=== PATIENT | female | born 1935 | race Caucasian/White ===

== ENCOUNTER → 2017-06-28 | Outpatient (CLI) | payer MEDICARE, BC ==
[~2017-06-28] MED LIST: AMLODIPINE BESY10 M1 PO; ATORVASTATIN CA80 MG PO; CHEWABLE ASPIRI81 MG PO; CHLORTHALIDONE25 MG PO; HYDROCODONE-APA1 TA1 PO; KEFLEX 500MG.500 MG PO; NOVOLOG MI100 UNITS/ SC; PLAVIX75 MG PO; PREDNISONE 20MG20 MG PO; RAMIPRIL 10MG C10 MG PO; RAMIPRIL10 MG PO; TOPROL XL 50MG50 MG PO
--- NOTE | 2017-06-28 14:53 | RADIOLOGY REPORT PS360 ---
History and Indications: History of CT, bypass surgery, hypertension, diabetes, hyperlipidemia, family history and chest pain Procedure: Patient received a 0.4 mg of Lexiscan, resting heart rate was 64 bpm resting blood pressure 170/60, with scan maximum heart rate achieved was 113 bpm, less than 85% of the maximum predicted heart rate and a blood pressure was 202 /103. With Lexiscan patient complained of headache and back pain. Electrocardiogram: Resting electrocardiogram showed sinus rhythm rightward axis, lateral ST-T changes consider ischemia versus strain pattern . With Lexiscan patient developed rate-dependent left bundle branch block. The EKG portion of the Lexiscan Myoview is nondiagnostic Cardiac stress and resting SPECT images: Cardiac stress and rest SPECT images were obtained using technetium 99 Myoview 10.1 mCi at rest and 32.5 mCi at stress, gated SPECT further analysis of segmental wall motion and calculation of the ejection fraction also done. Cardiac stress and rest images show a fixed defect involving the anteroapical apex and anteroseptal wall consistent with area of myocardial scarring without any significant thinning point ischemia. Computer derived ejection fraction is 60 percent, with anteroapical and anteroseptal wall hypokinesis. Right ventricle is mildly enlarged with normal contractility. Conclusion: 1. The EKG portion of the Lexiscan Myoview is nondiagnostic. 2. Scintigraphic evidence of myocardial scarring involving the anteroapical and anteroseptal wall without significant maria ines-infarct ischemia, computer derived ejection fraction is 60% with segmental wall motion abnormality described above, right ventricle is mildly enlarged with normal contractility. 3. Abnormal Lexiscan Myoview study.
== END ==
LOC: RAD 07:19
DX: R07.9 Chest pain, unspecified (principal); I25.10 Atherosclerotic heart disease of native coronary artery without angina pectoris
CPT/HCPCS: A9502; J2785

== ENCOUNTER 2017-09-03 10:38 | Inpatient (IN) | payer MEDICARE, BC ==
[~2017-09-03] VITALS: Ht 147.3 cm; Wt 52.7 kg
[2017-09-03 10:42] VITALS: BP 138/56
--- OUTSIDE RECORDS SUMMARY | 2017-09-03 10:55 | External Medical Summary Rpt | CCD ---
Author Author , JAMAL BERRY Address Unknown Phone [email or web address] Name Relationship Address Phone SANDEEP, Next Of Kin Sally GIBBS +1 [address] [phone] [place] [address] Purpose Continuity of Care Document - 06-19-2013 through 2016 Problems Code Diagnosis DOS Provider Status 621.0 786.50 789.05 M10.9 GOUT, UNSPECIFIED R07.9 CHEST PAIN, UNSPECIFIED Allergies, Adverse Reactions, Alerts Type Allergy to substance Adverse Reaction to Substance Substance Reaction Severity INGREDIENT: NO KNOWN Unknown Unknown - NO KNOWN DRUG ALLERGY Medications Na ND Rx Da Fi Fi Am Da Di Ph RX Ph St me C No te ll ll ou ys ag ar # ys at rm s nt no ma ic us Or Da si cy ia de te s n re d Sa 63 10 0 No li 80 -1 ne 70 0- Lo 10 20 ng Fl 07 13 er us 5 h Ac 10 ti ML ve Sy ri ng e SO 00 10 0 No EL 00 -1 -M 90 0- Lo ED 04 20 ng RO 72 13 er L 2 12 Ac 5 ti MG ve AL KE 00 10 0 No TO 40 -1 RO 93 0- Lo LA 79 20 ng C 50 13 er 30 1 Ac MG ti /M ve L AL Mo 00 10 0 No rp 40 -1 hi 91 0- Lo ne 25 20 ng 83 13 er 4M 0 G/ Ac Ml ti ve Sy ri ng e CE 00 10 0 No FT 40 -1 RI 97 0- Lo AX 33 20 ng ON 30 13 er E 4 1 Ac GM ti ve AL SO 00 10 0 No DI 40 -1 UM 97 0- Lo 10 20 ng CH 16 13 er LO 6 RI Ac DE ti ve 0. 9% SO LN Vital Signs 06-19-2013 23:09 Name Value Interpretat Reference Comment ion Range Body 97.9 [degF] Temperature BP 68 mm[Hg] Diastolic BP Systolic 121 mm[Hg] Heart 73 /min Rate/Pulse O2% 97 % Respiratory 17 /min Rate 06-19-2013 21:54 Name Value Interpretat Reference Comment ion Range BP 73 mm[Hg] Diastolic BP Systolic 135 mm[Hg] Heart 72 /min Rate/Pulse O2% 96 % Respiratory 19 /min Rate Results Labs Lab Lab Date Result Refere Interp Status Commen Order Detail nces retati t Range on COMPREHENSIVE METABOLIC PANEL (06-19-2013 21:17) Glucose 192 74-106 complet 013 mg/dL ed Bld-mCn 21:17 c BUN 31 7-18 complet Bld-mCn 013 mg/dL ed c 21:17 Creat 1.9 0.6-1.0 complet SerPl-m 013 mg/dL ed Cnc 21:17 ESTIMAT 20 50-200 complet ED 013 ML/MIN ed CREATIN 21:17 INE CLEARAN CE GFR 26 59- complet (ESTIMA 013 ML/MIN ed ROWDY) 21:17 Sodium 138 136-145 complet SerPl-s 013 mmoL/L ed Cnc 21:17 Potassi 3.8 3.5-5.1 complet um 013 mmoL/L ed SerPl-s 21:17 Cnc Chlorid 101 98-107 complet e 013 mmoL/L ed SerPl-s 21:17 Cnc CO2 24 21.0-32 complet SerPl-s 013 mmoL/L .0 ed Cnc 21:17 Calcium 06-19- 8.8 8.5-10. complet 013 mg/dL 1 ed SerPl-m 21:17 Cnc Prot 06-19- 8.0 6.4-8.2 complet SerPl-m 013 gm/dL ed Cnc 21:17 Albumin 06-19- 4.0 3.4-5.0 complet 013 gm/dL ed SerPl-m 21:17 Cnc Globuli 06-19- 4.0 1.3-3.2 complet n 013 gm/dL ed Ser-mCn 21:17 c Albumin 1.0 UNK 1.1-1.8 complet /Glob 013 ed SerPl-m 21:17 Rto Bilirub 0.8 0.2-1.0 complet 013 mg/dL ed SerPl-m 21:17 Cnc AST 10-10-2 12 U/L 15-37 complet SerPl-c 013 ed Cnc 21:17 ALT 10-10-2 29 U/L 30-65 complet SerPl-c 013 ed Cnc 21:17 ALP 10-10-2 101 U/L 50-136 complet SerPl-c 013 ed Cnc 21:17 URIC ACID (06-19-2013 21:17) URIC 10-10-2 8.0 2.6-7.2 complet ACID 013 mg/dL ed 21:17 CBC with AUTO DIFF (06-19-2013 21:17) WBC # 10-10-2 14.6 4.8-10. complet Bld 013 K/MM3 8 ed Auto 21:17 RBC # 10-10-2 4.13 4.2-5.4 complet Bld 013 M/mm3 ed Auto 21:17 Hgb 10-10-2 13.4 12.2-16 complet Bld-mCn 013 g/dL .2 ed c 21:17 Hct Fr 10-10-2 39.6 % 37.0-47 complet Bld 013 .0 ed 21:17 MCV RBC 10-10-2 95.8 fl 82.2-97 complet 013 .8 ed 21:17 MCH RBC 10-10-2 32.5 pg 27-31.2 complet Qn 013 ed Auto 21:17 MEAN 10-10-2 33.9 31.8-35 complet CORPUSC 013 g/dl .4 ed ULAR 21:17 HGB CONC RDW RBC 10-10-2 13.8 % 11.5-17 complet Auto 013 .5 ed 21:17 Platele 10-10-2 265 142-424 complet t Bld 013 K/mm3 ed Ql 21:17 Manual MEAN 10-10-2 8.4 fl 7.4-10. complet PLATELE 013 4 ed T 21:17 VOLUME Granulo 10-10-2 73.2 % 37.0-80 complet cytes 013 .0 ed Fr Bld 21:17 Auto LYMPH % 10-10-2 18.4 % 10-50.0 complet 013 ed 21:17 Monocyt 10-10-2 7.3 % 1.7-9.3 complet es Fr 013 ed Bld 21:17 Auto Eosinop 10-10-2 0.7 % 0.1-12. complet hil Fr 013 0 ed Bld 21:17 Auto Basophi 10-10-2 0.4 % 0.1-2.0 complet ls Fr 013 ed Bld 21:17 Auto Granulo 10-10-2 10.7 1.8-7.8 complet cytes # 013 K/mm3 ed Bld 21:17 Auto Lymphoc 10-10-2 2.7 0.7-4.5 complet ytes Fr 013 K/mm3 ed Bld 21:17 Auto Monocyt 10-10-2 1.1 0.1-1.0 complet es # 013 K/mm3 ed Bld 21:17 Auto Eosinop 10-10-2 0.1 0.0-0.4 complet hil # 013 K/mm3 ed Bld 21:17 Auto Basophi 10-10-2 0.1 0-0.2 complet ls # 013 K/MM3 ed Bld 21:17 Auto ESR Bld Qn 15M (06-19-2013 21:17) ESR Bld 06-19-2 41 0-30 complet Qn 15M 013 mm/hr ed 21:17 Encounters Encounter Start End Date Code Location Performer Type Date Emergency ALVIN Baron MD (ER) 3 21:38 3 23:10 [facility]
--- OUTSIDE RECORDS SUMMARY | 2017-09-03 10:55 | External Medical Summary Rpt | CCD ---
Author Author , JAMAL BERRY Address Unknown Phone [email or web address] Support Name Relationship Address Phone SANDEEP, Next Of Kin Sally GIBBS +1 [address]OS [phone] [place] [address] Purpose Continuity of Care Document - 06-19-2013 [...] Baron MD (ER) 3 21:38 3 23:10 [facility]
--- OUTSIDE RECORDS SUMMARY | 2017-09-03 10:56 | External Medical Summary Rpt | CCD ---
Author Author [employer] Organization [employer] Address Unknown Phone Unavailable Purpose Continuity of Care Document - through 2016
--- OUTSIDE RECORDS SUMMARY | 2017-09-03 10:56 | External Medical Summary Rpt | CCD ---
Demographics Preferred Language Maltese Marital Status Unknown Hinduism Affiliation Unknown Race Unknown Ethnic Group Unknown Author Author , JAMAL BERRY Address Unknown Phone Immunization No patient found.
--- OUTSIDE RECORDS SUMMARY | 2017-09-03 10:56 | External Medical Summary Rpt | CCD ---
Demographics Preferred Language Luxembourgish Marital Status Unknown Episcopalian Affiliation Unknown Race Unknown Ethnic Group Unknown Author Author , JAMAL BERRY Address Unknown Phone Immunization No patient found.
--- OUTSIDE RECORDS SUMMARY | 2017-09-03 10:56 | External Medical Summary Rpt ---
Author Author JAMAL Almonte, JAMAL Almonte Organization [employer] Address Unknown Phone Unavailable
--- NOTE | 2017-09-03 10:57 | Emergency Room Report ---
History of Present Illness Time Seen by 1050 Presenting Problem in Triage Pt arrived:Wheelchair Presenting Problem:BODY ACHES, FEVER, COUGH X2 DAYS Onset of symptoms date/time:/ or onset unknown for:MEDICAL HX UNKNOWN Treatment Prior to Arrival: MAINTENANCE INSPECTOR Provided by: Sepsis Risk Assessment: Temp: 101.1 B/P: 138/56 MAP: 83 Pulse: 110 Resp: 24 Recent fever? N Clinical Suspician of Infection? N Mental Status: 1 - Regular (Normal Baseline) Sepsis Risk:Severe Sepsis Risk Have you (or family members/close friends) recently traveled outside the [place]? N If Yes, where/when: Have you had exposure to infectious disease within the past month? TB? Other? Specify: 82 years old white female diabetic with history of bronchitis 2 weeks ago. She was treated with antibiotics. 3 days ago she developed progressive cough productive green , shortness of breath and weakness. She presented to the ED with a fever of 101. she has no dysuria or hematuria, she has no flank pain, no NVD. Source patient, RN notes reviewed Exam Limitations clinical condition (hard hearing ) ALLERGIES Coded Allergies: No Known Allergies (09/03/17) Home Medications Active Scripts Prednisone (Prednisone 20MG) 40 MG PO DAILY #10 TAB Prov: 07/02/14 HYDROCODONE 5MG/APAP 325MG (Hydrocodon-Acetaminophen 5-325) 0.5 TAB PO Q6HP PRN sever pain #6 TAB Prov: 07/02/14 Reported Medications Clopidogrel Bisulfate (Plavix) 75 MG PO DAILY Ramipril (Ramipril 10MG) 10 MG PO DAILY Aspirin (Aspirin, Chewable) 81 MG PO DAILY Ins Asp-Prt 70/Asp 30(Nvlogmx) (Novolog Mix 70-30 Flexpen Syrn) 8 UNITS SC BID #30 90 Days Chlorthalidone 25 MG PO DAILY #90 90 Days Atorvastatin Calcium 80 MG PO QHS #90 90 Days Amlodipine Besylate 10 MG PO BID #180 90 Days History Medical History General Angina: No [place]: Yes Hypertension? Yes Hyperlipidemia? Yes CHF? No COPD? No Asthma? No Hernia? No CVA? No Seizures? No Diabetes? Yes Insulin Dependent: Yes Insulin Pump: No Home FSBS? Yes UTI? Yes Stones? No GB Disease: Yes Hepatitis? No Cataracts? Yes Glaucoma? No MRSA? Yes TB? No Cancer? No Immunization Hx DT/Tetanus > 10 YRS Flu NEVER Pneumonia NEVER Surgical Hx Previous Surgery?Y CABGX3 GALLBLADDER CATARACT REMOVAL-R EYE TONSILECTOMY Family History Family Hx Diabetes Yes CAD Yes Hypertension Yes Hyperlipidemia Yes Cancer Yes TB Yes Social History Smoking Hx Smoker: Never Smoker Tobacco: No Type Cigarettes Alcohol Alcohol: No Review of Systems All Other Systems Reviewed and Negative Constitutional see HPI, fever, weakness Eyes no symptoms reported ENT no symptoms reported. Respiratory see HPI, cough, shortness of breath Cardiovascular no symptoms reported Gastrointestinal no symptoms reported Genitourinary no symptoms reported. Musculoskeletal no symptoms reported Skin no symptoms reported Psychiatric/Neurological no symptoms reported Physical Exam Vital Signs Vital Signs Date Time Temp Pulse Resp B/P Pulse O2 O2 Flow FiO2 Ox Delivery Rate 09/03 1159 50 20 124/52 91 3 09/03 1158 100.0 43 20 124/48 82 09/03 1042 101.1 110 24 138/56 92 - WBC >12,000 or <4,000 or 10% bands? 2 or more SIRS Criteria Met? B/P:138/56 MAP:83 Creatinine >2.0? UA output<0.5ml/kg/hr for 2 hrs? Platelet count >100,000? Lactate >2.0mmol/1? INR >1.2 or PTT > than 60 sec? Evidence of Organ Dysfunction? Provider documented clinical suspician of infection? N Sepsis Criteria Count: 2 Sepsis Risk: Severe Sepsis Risk General Appearance normal appearance, WD/WN Eye Exam - bilateral eye normal exam, bilateral eye PERRL, bilateral eye EOMI Ear, Nose, Throat hearing grossly normal, normal ENT inspection Neck normal inspection, non-tender, supple, full range of motion Respiratory Status Yes: trachea midline, chest symmetrical, non tender chest. No: respiratory distress. Lung Sounds bilateral: normal breath sounds, lungs clear. Cardiovascular normal exam, regular rate/rhythm, no peripheral edema, no gallop, no JVD, no murmur, no rub, normal peripheral pulses Peripheral Pulses Pulses normal Yes Gastrointestinal normal bowel sounds, normal exam, non tender, soft, no organomegaly Extremities non-tender, normal range of motion, normal inspection, normal capillary refill, no pedal edema Strength 4 Upper Ext (L), 4 Upper Ext (R), 4 Lower Ext (L), 4 Lower Ext (R) Neurologic alert, service desk lead II-XII nml as tested, normal exam, no motor/sensory deficits, oriented x 3 Reflexes Reflexes normal Yes Mental status normal mood/affect Skin intact, normal color, warm/dry Medical Decision Making LABS/Meds/Orders Pt receiving controlled substance in ED? No Results/Orders Laboratory Tests 09/03/17 1055: Lactic Acid 1.5 09/03/17 1055: B-Natriuretic Peptide Pending 09/03/17 1055: Sodium 138, Potassium 4.4, Chloride 105, Carbon Dioxide 22, BUN 43 H, Creatinine 2.3 H, Estimated Creat Clear 16 L, Estimated GFR (MDRD) 20 L, Glucose 140 H, Calcium 9.1, Total Bilirubin 1.7 H, AST 25, ALT 39, Alkaline Phosphatase 75, Total Protein 7.3, Albumin 4.0, Globulin 3.3 H, Albumin/ Globulin Ratio 1.2, WBC 12.7 H, RBC 3.29 L, Hgb 10.5 L, Hct 32.8 L, MCV 99.6 H, RDW 15.4, Plt Count 163, MPV 9.6, Gran % 88.2 H, Gran # 11.2 H, Total Counted 100, Lymphocytes % 6.6 L, Monocytes % 4.4, Eosinophils % 0.5, Basophils % 0.3, Neutrophils 92 H, Lymphocytes (Manual) 4 L, Lymphocytes # 0.8, Monocytes (Manual) 4, Monocytes # 0.6, Eosinophils # 0.1, Basophils # 0.0, Platelet Estimate NORMAL, Hypochromasia 1+, Anisocytosis 1+, Macrocytosis 1+, PUBS MCHC 32.0, MCH 31.9 H 09/03/17 1045: Influenza Type A Ag NOT DETECTED, Influenza Type B Ag NOT DETECTED Current Medication Orders Sig/New Start time Last Medication Dose Route Stop Time Status Admin Furosemide 20 MG ONCE ONE 09/03 1215 AC 09/03 IV 09/03 1216 1206 Ceftriaxone Sodium 0 .STK-MED ONE 09/03 1204 DC .ROUTE Furosemide 0 .STK-MED ONE 09/03 1203 DC .ROUTE Ceftriaxone Sodium 1 GM ONCE ONE 09/03 1200 AC 09/03 Sodium Chloride 50 ML IV 09/03 1229 1206 Sodium Chloride 1,000 ML .STK-MED ONE 09/03 1104 DC IV Acetaminophen 650 MG ONCE ONE 09/03 1100 DC 09/03 PO 09/03 1101 1053 Sodium Chloride 10 ML PRN PRN 09/03 1100 AC IV 09/04 1051 Sodium Chloride 1,000 ML .Q1H1M 09/03 1100 DC 09/03 IV 09/03 1200 1106 Sodium Chloride 10 ML PRN PRN 09/03 1100 AC IV 09/04 1058 Acetaminophen 0 .STK-MED ONE 09/03 1052 DC PO Orders Procedure Date/time Status BRAIN NATRIURETIC PEPTIDE 09/03 1146 Active STREP SCREEN THROAT 09/03 1056 Complete CULTURE, THROAT 09/03 1055 Active DIFFERENTIAL-WBC 09/03 1055 Complete IV SALINE LOCK 09/03 1051 Active CULTURE, BLOOD 09/03 1051 Active LACTIC ACID 09/03 1051 Complete INFLUENZA A&B ANTIGENS 09/03 1051 Complete CBC WITH AUTO DIFF 09/03 1051 Complete CHEM 12 PROFILE 09/03 1051 Complete Departure Departure Time of Disposition 1207 Disposition Still a Patient Clinical Impression Primary Impression: Sinus bradycardia Secondary Impressions: Congestive heart failure, Diabetes, Pneumonia, Renal insufficiency Condition STABLE Referrals Cristina NGUYEN,Rikki Howe Additional Instructions The patient hhad an episode of bradycardia and maintained her BP at 120/60. she was positive CHF by CXR. I discussed with Dr Evans and could no t exclude oneumonia on CXR . 1- will admit 2- start abx 3- consult cardiology , I called Dr Ferguson and notified him of the consult. 4- start diuresis. 5- hold norvasc. Discharge Counseling Counseled pt/family regarding diagnosis, test results, medications/RX, home care, follow up needs ED Critical Care Critical Care No at 1216
[2017-09-03 11:25] LABS: LYMPH # 0.8 K/mm3 (0.7-4.5); LYMPH % 6.6 % (10-50.0)
--- NOTE | 2017-09-03 11:31 | RADIOLOGY REPORT PS360 ---
CHEST(2 VIEWS-NOT PORTABLE) HISTORY: SOA, WEAKNESS ORDERING PHYSICIAN: Sunni Loo MD PATIENT AGE: 82 years COMPARISON: 02/24/2009 FINDINGS: There is cardiomegaly with pulmonary venous congestion and small bilateral pleural effusions consistent with congestive heart failure. No lobar consolidation or collapse. There has been a prior median sternotomy. IMPRESSION: CHF and small bilateral effusions
[2017-09-03 11:40] LABS: HEMOGLOBIN 10.5 g/dL (12.2-16.2)
[2017-09-03 12:03] LABS: NEUTROPHILS 92 % (42-76)
--- OUTSIDE RECORDS SUMMARY | 2017-09-03 12:29 | External Medical Summary Rpt ---
Author Author [employer], [employer] Organization [employer] Address Unknown Phone Unavailable Results Natriutietic peptide B [Mass/volume] in Serum or Plasma Observa Value Referen Units Interpr Notes Date tion ce etation Range Natriutie 0 - 100 pg/mL High No Sep 03 tic 2016 peptide B on in 10:55 AM source [Mass/vol data ume] in Serum or Plasma CBC W Auto Differential panel in Blood Observa Value Referen Units Interpr Notes Date ti ce etation Range Basophils 0 - 0.2 K/MM3 Normal No Sep 032016 [#/volume on in 10:55 AM ] in source Blood by data Automated count Basophils 0.1 - 2.0 % Normal No Sep 03 / inform2016 leukocyte on in 10:55 AM s in source Blood by data Automated count Eosinophi 0.0 - 0.4 K/mm3 Normal No Sep 03 ls 2016 [#/volume on in 10:55 AM ] in source Blood by data Automated count Eosinophi 0.1 - % Normal Sep 03 ls/100 12.0 2016 leukocyte on in 10:55 AM s in source Blood by data Automated count Granulocy 1.8 - 7.8 K/mm3 High No Sep 03 tex 2016 [#/volume on in 10:55 AM ] in source Blood by data Automated count Granulocy 37.0 - % High No Sep 03 tex/100 80.0 2016 leukocyte on in 10:55 AM s in source Blood by data Automated count Hematocri 37.0 - % Low Sep 03 t [Volume 47.0 2016 on in 10:55 AM Fraction] source of Blood data Hemoglobi 12.2 - g/dL Low No Sep 03 n 16.2 2016 [Mass/vol on in 10:55 AM ume] in source Blood data Lymphocyt 0.7 - 4.5 K/mm3 Normal No Sep 03 es 2016 [#/volume on in 10:55 AM ] in source Unspecifi data ed specimen by Automated count Lymphocyt 10 - 50.0 % Low No Sep 03 es 2016 [#/volume on in 10:55 AM ] in source Unspecifi data ed specimen by Automated count Erythrocy 27 - 31.2 pg High No Sep 03 te mean 2016 corpuscul on in 10:55 AM ar source hemoglobi data n [Entitic mass] Erythrocy 31.8 - g/dl Normal No Sep 03 te mean 35.4 2016 corpuscul on in 10:55 AM ar source hemoglobi data n concentra tion [Mass/vol ume] by Automated count Erythrocy 82.2 - fl High No Sep 03 te mean 97.8 2016 corpuscul on in 10:55 AM ar volume source [Entitic data volume] by Automated count Monocytes 0.1 - 1.0 K/mm3 Normal No Sep 032016 [#/volume on in 10:55 AM ] in source Blood by data Automated count Monocytes 1.7 - 9.3 % Normal No Sep 03 /100 2016 leukocyte on in 10:55 AM s in source Blood by data Automated count Platelet 7.4 - fl Normal No Sep 03 mean 10.4 2016 volume on in 10:55 AM [Entitic source volume] data in Blood by Automated count Platelets 142 - 424 K/mm3 No No Sep 03 informati inform2016 [#/volume on in on in 10:55 AM ] in source source Blood data data Erythrocy 4.2 - 5.4 M/mm3 Low No Sep 03 tex 2016 [#/volume on in 10:55 AM ] in source Amniotic data fluid Erythrocy 11.5 - % Normal No Sep 03 te 17.5 2016 distribut on in 10:55 AM ion width source [Entitic data volume] by Automated count Leukocyte 4.8 - K/MM3 High No Sep 03 s 10.8 2016 [#/volume on in 10:55 AM ] in source Blood data Differential panel, method unspecified - Observa Value Referen Units Interpr Notes Date tion ce etation Range Anisocy 1+ No No No No Sep 03 tosis informa informa informa informa 2016 [Presen tion in tion in tion in tion in 10:55 ce] in source source source source AM Blood data data data data Hypochr 1+ No No No No Sep 03 omia informa informa informa informa 2016 [Presen tion in tion in tion in tion in 10:55 ce] in source source source source AM Blood data data data data LYMPH 4 10 - 50 % Low No Sep 03 inform2016 tion in 10:55 source AM data Macrocy 1+ No No No No Sep 03 tex informa informa informa informa 2016 [Presen tion in tion in tion in tion in 10:55 ce] in source source source source AM Blood data data data data Monocytes 2 - 9 % Normal No Sep 03 / inform2016 leukocyte on in 10:55 AM s in source Blood by data Automated count Platele NORMAL No No No No Sep 03 ts informa informa informa informa 2016 [Presen tion in tion in tion in tion in 10:55 ce] in source source source source AM Blood data data data data by Light microsc opy Neutrophi 42 - 76 % High No Sep 03 ls 2016 [#/volume on in 10:55 AM ] in source Blood by data Automated count Cells No #CELLS No No Sep 03 Counted informati informati informati 2016 Total [#] on in on in on in 10:55 AM in Blood source source source data data data Streptococcus pyogenes Ag [Presence] in Unspecified specimen Observa Value Referen Units Interpr Notes Date tion ce etation Range Strepto NEGATIV No No No No Sep 03 coccus E informa informa informa informa 2016 pyogene tion in tion in tion in tion in 10:55 s Ag source source source source AM [Presen data data data data ce] in Unspeci fied specime n Lactate [Moles/volume] in Blood Observa Value Referen Units Interpr Notes Date tion ce etation Range Lactate 0.4 - 2.0 mmol/L Normal No Sep 03 [Moles/vo inform2016 lume] in on in 10:55 AM Blood source data Comprehensive metabolic 2000 panel in Serum or Plasma Observa Value Referen Units Interpr Notes Date tion ce etation Range Albumin/G 1.1 - 1.8 No Normal No Sep 03 lobulin informati informati 2016 [Mass on in on in 10:55 AM ratio] in source source Serum or data data Plasma Albumin 3.4 - 5.0 gm/dL Normal No Sep 03 [Mass/vol informati 2017 ume] in on in 10:55 AM Serum or source Plasma data Alkaline 46 - 116 U/L Normal No Sep 03 phosphata inform2016 se on in 10:55 AM [Enzymati source c data activity/ volume] in Serum or Plasma Bilirubin 0.2 - 1.0 mg/dL High No Sep 03 .total informati 2016 [Mass/vol on in 10:55 AM ume] in source Serum or data Plasma Urea 7 - 18 mg/dL High No Sep 03 nitrogen informati 2016 [Mass/vol on in 10:55 AM ume] in source Serum or data Plasma Calcium 8.5 - mg/dL Normal No Sep 03 [Mass/vol 10.1 informati 2016 ume] in on in 10:55 AM Serum or source Plasma data Chloride 98 - 107 mmoL/L Normal No Sep 03 [Moles/vo informati 2016 lume] in on in 10:55 AM Serum or source Plasma data Carbon 21.0 - mmoL/L Normal Sep 03 dioxide, 32.0 informati 2016 total on in 10:55 AM [Moles/vo source lume] in data Serum or Plasma Creatinin 0.55 - mg/dL High No Sep 03 e 1.02 informati 2016 [Mass/vol on in 10:55 AM ume] in source Serum or data Plasma Creatinin 50 - 200 ML/MIN Low No Sep 03 e renal inform 2017 clearance on in 10:55 AM source predicted data by Cockcroft -Gault formula Estimated 59- ML/MIN Low REFERENCE Sep 03 RANGE: 2017 glomerula >60 10:55 AM r ML/MIN/1. filtratio 73 SQUARE n rate METERSIf (GF this patient is -A merican, then multiply theresult by 1.210. Globulin 1.3 - 3.2 gm/dL High No Sep 03 [Mass/vol informati 2017 ume] in on in 10:55 AM Serum source data Glucose 74 - 106 mg/dL High No Sep 03 [Mass/vol informati 2017 ume] in on in 10:55 AM Serum or source Plasma data Potassium 3.5 - 5.1 mmoL/L Normal No Sep 03 informati 2016 [Moles/vo on in 10:55 AM lume] in source Serum or data Plasma Sodium 136 - 145 mmoL/L Normal No Sep 03 [Moles/vo informati 2017 lume] in on in 10:55 AM Serum or source Plasma data Aspartate 15 - 37 U/L Normal No Sep 03 inform2016 aminotran on in 10:55 AM sferase source [Enzymati data c activity/ volume] in Serum or Plasma Alanine 12 - 78 U/L Normal No Sep 03 aminotran inform2016 sferase on in 10:55 AM [Enzymati source c data activity/ volume] in Serum or Plasma Protein 6.4 - 8.2 gm/dL Normal No Sep 03 [Mass/vol informati 2016 ume] in on in 10:55 AM Serum or source Plasma data Influenza virus A+B Ag [Presence] in Unspecified specimen Observa Value Referen Units Interpr Notes Date tion ce etation Range Influen NOT NOT No No Sep 03 za DETECTE DETECTD informa informrichard tracey,Cammie 2017 virus A D tion in tion in herine 10:45 Ag source source AM [Presen data data ce] in Unspeci fied specime n Influen NOT NOT No No Sep 03 za DETECTE DETECTD informa informrichard tracey,Cammie 2017 virus B D tion in tion in herine 10:45 Ag source source AM [Presen data data ce] in Unspeci fied specime n
--- OUTSIDE RECORDS SUMMARY | 2017-09-03 12:29 | External Medical Summary Rpt | CCD ---
Demographics Preferred Language Kiswahili Marital Status Unknown Islam Affiliation Unknown Race Unknown Ethnic Group Unknown Author Author , JAMAL BERRY Address Unknown Phone Immunization No patient found.
--- OUTSIDE RECORDS SUMMARY | 2017-09-03 12:29 | External Medical Summary Rpt | CCD ---
Demographics Preferred Language Kiswahili Marital Status Unknown Hindu Affiliation Unknown Race Unknown Ethnic Group Unknown Author Author , JAMAL BERRY Address Unknown Phone Immunization No patient found.
--- OUTSIDE RECORDS SUMMARY | 2017-09-03 12:29 | External Medical Summary Rpt | CCD ---
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, UNSPECIFIED R00.1 BRADYCARDIA 09-03-2017 , UNSPECIFIED 621.0 786.50 789.05 M10.9 GOUT, UNSPECIFIED R07.9 [...] Order Detail nces retati t Range on Comprehensive metabolic panel (09-03-2017 10:55) Serum 12-25-2 = 1.2 1.1-1.8 complet or 017 ed plasma 10:55 albumin /globul in mass ra Serum 25-2 = 75 46-116 complet or 017 U/L ed plasma 10:55 alkalin e phospha tase dottie Serum 09-03-2 = 4.0 3.4-5.0 complet or 017 gm/dL ed plasma 10:55 albumin measure ment (mas Serum 09-03-2 = 1.7 0.2-1.0 complet or 017 mg/dL ed plasma 10:55 total bilirub in measure m Serum 09-03-2 = 43 7-18 complet or 017 mg/dL ed plasma 10:55 urea nitroge n measure men Serum 25-2 = 9.1 8.5-10. complet or 017 mg/dL 1 ed plasma 10:55 calcium measure ment (mas Serum 09-03-2 = 105 98-107 complet or 017 mmoL/L ed plasma 10:55 chlorid e measure ment (mo Carbon 25-2 = 22 21.0-32 complet dioxide 017 mmoL/L .0 ed 10:55 measure ment Serum 25-2 = 2.3 0.55-1. complet or 017 mg/dL 02 ed plasma 10:55 creatin ine measure ment ( Estimat 09-03-2 = 16 50-200 complet ion of 017 ML/MIN ed creatin 10:55 ine renal clearan ce Estimat 25-2 = 20 59- complet ed 017 ML/MIN ed glomeru 10:55 lar filtrat ion rate (GF Comment: REFERENCE RANGE: >60 ML/MIN/1.73 SQUARE METERS Comment: If this patient is -[place], then multiply the Comment: result by 1.210. Serum 09-03-2 = 3.3 1.3-3.2 complet globuli 017 gm/dL ed n 10:55 measure ment (mass/v olume) Serum 09-03-2 = 140 74-106 complet or 017 mg/dL ed plasma 10:55 glucose measure ment (mas Serum = 4.4 3.5-5.1 complet potassi 017 mmoL/L ed um 10:55 measure ment Serum 2 = 138 136-145 complet sodium 017 mmoL/L ed measure 10:55 ment Serum 2 = 25 15-37 complet or 017 U/L ed plasma 10:55 asparta te aminotr ansfera ALT = 39 12-78 complet (SGPT) 017 U/L ed ser/barry 10:55 s Protein = 7.3 6.4-8.2 complet total 017 gm/dL ed ser/barry 10:55 s Screening group A Streptococcus antigen (09-03-2017 10:55) Screeni NEGATIV complet ng 017 E ed group A 10:55 NEGATIV E L Strepto coccus antigen Blood lactic acid measurement (moles/vol (09-03-2017 10:55) Blood 2 = 1.5 0.4-2.0 complet lactic 017 mmol/L ed acid 10:55 measure ment (moles/ vol CBC w auto diff (09-03-2017 10:55) Automat = 0.0 0-0.2 complet ed 017 K/MM3 ed blood 10:55 basophi l count (count/ vo Blood = 10.5 12.2-16 complet hemoglo 017 g/dL .2 ed bin 10:55 measure ment (mass/v olum Absolut = 0.8 0.7-4.5 complet e 017 K/mm3 ed lymphoc 10:55 yte count Lymphoc = 6.6 % 10-50.0 complet yte 017 ed count, 10:55 blood, automat ed Mean = 31.9 27-31.2 complet corpusc 017 pg ed ular 10:55 hemoglo bin (MCH) determ Automat = 32.0 31.8-35 complet ed 017 g/dl .4 ed erythro 10:55 cyte mean corpusc ular h Automat = 99.6 82.2-97 complet ed 017 fl .8 ed erythro 10:55 cyte mean corpusc ular v Blood = 11.2 1.8-7.8 complet granulo 017 K/mm3 ed cytes 10:55 automat ed count (numb Blood = 32.8 37.0-47 complet hematoc 017 % .0 ed rit 10:55 (volume fractio n) Baso % = 0.3 % 0.1-2.0 complet 017 ed 10:55 Automat = 0.1 0.0-0.4 complet ed 017 K/mm3 ed blood 10:55 eosinop hil count Automat = 0.5 % 0.1-12. complet ed 017 0 ed blood 10:55 eosinop hils/10 0 leukocy t Granulo = 88.2 37.0-80 complet cyte 017 % .0 ed percent 10:55 age Absolut = 0.6 0.1-1.0 complet e 017 K/mm3 ed monocyt 10:55 e count [place] % = 4.4 % 1.7-9.3 complet 017 ed 10:55 Automat = 9.6 7.4-10. complet ed 017 fl 4 ed blood 10:55 platele t mean volume dottie Blood = 163 142-424 complet platele 017 K/mm3 ed t count 10:55 Red = 3.29 4.2-5.4 complet blood 017 M/mm3 ed cell 10:55 count Automat = 15.4 11.5-17 complet ed 017 % .5 ed erythro 10:55 cyte distrib ution width Blood = 12.7 4.8-10. complet leukocy 017 K/MM3 8 ed tex 10:55 count (number /volume ) Differential panel, method unspecified - (09-03-2017 10:55) Blood 1+ 1+ L complet anisocy 017 ed tosis 10:55 detecti on Hypochr 1+ 1+ L complet omatic 017 ed red 10:55 blood cell detecti on LYMPH 4 % 10-50 complet 017 ed 10:55 Macrocy 1+ 1+ L complet tex 017 ed detecti 10:55 on Monocyt = 4 % 2-9 complet e % 017 ed 10:55 Platele NORMAL complet t 017 NORMAL ed estimat 10:55 L e Neutrop = 92 % 42-76 complet hil 017 ed count 10:55 Blood = 100 complet total 017 #CELLS ed cell 10:55 count Brain natriuretic peptide (09-03-2017 10:55) Brain = 2390 0-100 complet natriur 017 pg/mL ed etic 10:55 peptide Differential panel, method unspecified - (09-03-2017 10:55) Anisocy 1+ complet tosis 017 ed [Presen 10:55 ce] in Blood Hypochr 1+ complet omia 017 ed [Presen 10:55 ce] in Blood LYMPH 4 % 10% - Low complet 017 50% ed 10:55 Macrocy 1+ complet tex 017 ed [Presen 10:55 ce] in Blood Platele NORMAL complet ts 017 ed [Presen 10:55 ce] in Blood by Light microsc opy Streptococcus pyogenes Ag [Presence] in Unspecified specimen (09-03-2017 10:55) Strepto NEGATIV complet coccus 017 E ed pyogene 10:55 s Ag [Presen ce] in Unspeci fied specime n Influenza A and B virus antigen assay (09-03-2017 10:45) Influen NOT NOT complet za A ag 017 DETECTE DETECTD ed QL 10:45 D NOT DETECTE D L Comment: Demetra Lazaro Influen NOT NOT complet za 017 DETECTE DETECTD ed virus B 10:45 D NOT DETECTE antigen D L detecti on Comment: Demetra Lazaro Influenza virus A+B Ag [Presence] in Unspecified specimen (09-03-2017 10:45) Influen NOT NOT complet za 017 DETECTE DETECTD ed virus A 10:45 D Ag [Presen ce] in Unspeci fied specime n Influen NOT NOT complet za 017 DETECTE DETECTD ed virus B 10:45 D Ag [Presen ce] in Unspeci fied specime n COMPREHENSIVE METABOLIC PANEL (06-19-2013 21:17) Glucose 192 74-106 complet 013 mg/dL ed Bld-mCn 21:17 c BUN 31 7-18 complet Bld-mCn 013 mg/dL ed c 21:17 Creat 1.9 0.6-1.0 complet SerPl-m 013 mg/dL ed Cnc 21:17 ESTIMAT 20 50-200 complet ED 013 ML/MIN ed CREATIN 21:17 INE CLEARAN CE GFR 26 59- complet (ESTIMA 013 ML/MIN ed ROWDY) 21:17 Sodium 06-19- 138 136-145 complet SerPl-s 013 mmoL/L ed Cnc 21:17 Potassi 3.8 3.5-5.1 complet um 013 mmoL/L ed SerPl-s 21:17 Cnc Chlorid 101 98-107 complet e 013 mmoL/L ed SerPl-s 21:17 Cnc CO2 06-19- 24 21.0-32 complet SerPl-s 013 mmoL/L .0 ed Cnc 21:17 Calcium 10-2 8.8 8.5-10. complet 013 mg/dL 1 ed SerPl-m 21:17 Cnc Prot 06-19-2 8.0 6.4-8.2 complet SerPl-m 013 gm/dL ed Cnc 21:17 Albumin 10-2 4.0 3.4-5.0 complet 013 gm/dL ed SerPl-m 21:17 Cnc Globuli 4.0 1.3-3.2 complet n 013 gm/dL ed Ser-mCn 21:17 c Albumin 10-10-2 1.0 UNK 1.1-1.8 complet /Glob 013 ed SerPl-m 21:17 Rto Bilirub 10-10-2 0.8 0.2-1.0 complet 013 mg/dL ed SerPl-m [...] Bld Qn 15M (06-19-2013 21:17) ESR Bld 10-10-2 41 0-30 complet Qn 15M 013 mm/hr ed 21:17 Encounters Encounter Start End Date Code Location Performer Type Date Emergency ALVIN Baron MD (ER) 3 21:38 3 23:10 [facility]
--- OUTSIDE RECORDS SUMMARY | 2017-09-03 12:29 | External Medical Summary Rpt | CCD ---
Author Author , JAMAL Organization JAMAL Address Unknown Phone [email or web address] Support Name Relationship Address Phone SANDEEP, Next Of Kin Sally GIBBS +1 [address] [phone] [place] [id number] Purpose Continuity of Care Document - 06-19-2013 [...] SQUARE METERS Comment: If this patient is -[place], then multiply the Comment: result by 1.210. [...] 017 K/mm3 ed monocyt 10:55 e count Sherman % = 4.4 % 1.7-9.3 complet 017 [...] Baron MD (ER) 3 21:38 3 23:10 [facility]
[2017-09-03 14:29] VITALS: BP 125/47
[2017-09-03] MEDS ORDERED: HUMALOG MIX75/253 ML SC (14:46)
[2017-09-03] MEDS ORDERED: ALLOPURINOL100 MG PO (14:49)
[2017-09-03] MEDS ORDERED: BISOPROLOL 5MG T5 MG PO (14:51)
--- NOTE | 2017-09-03 18:53 | ACUTE CARE PROGRESS NOTE (QUA) ---
Progress Notes Subjective Date 09/03/17 Time 1850 Assessment/Plan Problem List 1. Congestive heart failure 2. Pneumonia 3. Sinus bradycardia 4. Acute on chronic renal insufficiency 5. Type 2 diabetes mellitus 6. Hypertension 7. Hyperlipidemia Plan: Admitted with CHF and new onset bradycardia but recently treated in office for bronchitis with Zithromax. May have underlying pneumonia not evident on CXR. Will be covered with antibiotics. GFR is down so will cautiously diurese. Bradycardia may be related to beta michael which will be held. This inpt stay is expected to cross 2 MNs from start of care Yes at 1855
[2017-09-03 20:17] VITALS: BP 145/53
[2017-09-03 21:05] VITALS: BP 145/53
[2017-09-04] VITALS (8 sets, daily range): BP systolic 108–137; BP diastolic 41–64
[2017-09-04 07:08] LABS: LYMPH # 1.4 K/mm3 (0.7-4.5); LYMPH % 19.9 % (10-50.0)
--- NOTE | 2017-09-04 07:25 | PHARMACY CLINIC NOTE ---
Patient Demographics Patient Demographics Admission date: 09/03/17 Date: 09/04/17 Time: 0724 Allergies Coded Allergies: No Known Allergies (09/03/17) HEIGHT- FT: 4 IN: 10.00 K.222 VTE General Information Labs: Laboratory Tests 09/03 1055 Hematology Hgb (12.2 - 16.2 g/dL) 10.5 L Hct (37.0 - 47.0 %) 32.8 L Plt Count (142 - 424 K/mm3) 163 Disclaimer The following section includes nursing documentation that has been pulled in for pharmacy review. Patient's VTE score: 2 Patient's VTE Risk: VERY LOW RISK Clinical trial participant? No VTE prophylaxis F 0371 VTE prophylaxis ordered? Yes Type of prophylaxis/treatment: ROWDY at 0724
[2017-09-04 07:28] LABS: HEMOGLOBIN 9.2 g/dL (12.2-16.2)
[2017-09-04] MEDS ORDERED: AMLODIPINE BES10 MG PO (09:05)
--- NOTE | 2017-09-04 09:14 | HISTORY AND PHYSICAL REPORT ---
See Addendum History and Physical (FCA) Date of admission: 09/03/17 Chief complaint: Cough and Shortness of Breath History: History of Present Illness: Ms. Moore is an 82yo WF with hx of DM, HTN, CAD, and HLP with a history of bronchitis two weeks ago for which she was treated with antibiotics on an outpatient basis. She presented to the [facility] ED yesterday after three days of progressive productive cough, shortness of breath, and weakness at home. Upon arrival, she was found to be febrile with elevated WBC and decreased renal function. Her CXR showed CHF with small bilateral effusion, however, it was felt that pneumonia could not be excluded. While in the ED, she had an episode of asymptomatic bradycardia. The case was discussed with Dr. Evans and she was admitted for further evaluation, IV antibiotics, and cardiology consult. This morning, she reports feeling somewhat better although she remains very tired. She denies any chest pain or SOB. She continues with chest congestion and productive cough, as well as some dizziness with ambulation which she feels has improved from yesterday. Past Medical History: Medical History: CAD? Yes Angina: No CA: Yes Hypertension? Yes Hyperlipidemia? Yes CHF? No DVT? No PE? No COPD? No Asthma? No Anemia? No GERD? No Gastric ulcers? No GI Bleed? No Hernia? No Thyroid Problems? No Hypothyroidism? No CVA? No Seizures? No Diabetes? Yes Insulin Dependent: Yes Insulin Pump: No Home FSBS? Yes Renal Insuffiency? Yes UTI? Yes Stones? No GB Disease: Yes Hepatitis? No Cataracts? Yes Glaucoma? No MRSA? Yes TB? No Cancer? No Surgical history: Previous Surgery? 1. CABG X 3 2. GALLBLADDER 3. CATARACT REMOVAL-R EYE 4. TONSILLECTOMY Medications: Reported Medications Chlorthalidone 25 MG PO BID #90 TAB 90 Days BISOPROLOL FUMARATE (Bisoprolol 5MG) 5 MG PO DAILY Amlodipine Besylate (Amlodipine Besylate) 10 MG PO DAILY INSULIN NPL/INSULIN LISPRO (Humalog Mix 75-25 Kwikpen) 0 UNITS SC BID Allopurinol 100 MG PO DAILY Clopidogrel Bisulfate (Plavix) 75 MG PO DAILY Ramipril (Ramipril 10MG) 10 MG PO DAILY Atorvastatin Calcium 80 MG PO QHS #90 90 Days Discontinued Reported Medications Amlodipine Besylate 10 MG PO BID #180 90 Days DC: 09/04/17 0905 Allergies: Coded Allergies: No Known Allergies (09/03/17) Family History: Family history: Postive for: CAD, DM, HTN, cancer, hyperlipidemia. Social History: Smoking Hx Tobacco: No Smoker: Former Smoker Type: Cigarettes Packs/day: N/A Are you exposed to second hand No Alcohol: Alcohol: No Hx of Drug Use: Drug Use? No Patient's support system is: good Review of Systems: Patient unresponsive? No Constitutional Positive for: chills, fatigue, weak. ENT Positive for: nasal congestion, sore throat. Cardiovascular Positive for: chest pain, edema. Respiratory Positive for: shortness of air, productive cough (sputum). Neurological Positive for: dizziness, light headed, weakness. Physical Exam: Vital signs: 1ST Vital Signs Result Date Time Pulse Ox 92 09/03 1042 B/P 138/56 09/03 1042 Temp 101.1 09/03 1042 Pulse 110 09/03 1042 Resp 24 09/03 1042 O2 Flow Rate 3 09/03 1159 O2 Delivery OXYGEN 09/03 1429 Exam: General appearance: alert, awake, no acute distress Eyes: conjunctiva clear, PERRLA ENT: mucous membranes moist, pharynx normal Neck: non-tender, full range of motion, no LAD or thyromegaly Cardiovascular: regular rate & rhythm, normal peripheral pulses Respiratory: good air movement with wheezes throughout, fine rales left base ABD: non-distended, no rebound, soft, no tenderness, no guarding, no organomegaly, no palpable mass, bowel sounds present Extremities: full range of motion, no peripheral edema, warm, no calf tenderness Neuro: alert, oriented, speech clear, no focal deficit Lab data: Labs: Laboratory Tests 09/04/17 0655: POC Glucose 109 09/04/17 0638: Sodium 140, Potassium 3.8, Chloride 107, Carbon Dioxide 19 L, BUN 47 H, Creatinine 2.4 H, Estimated Creat Clear 17 L, Estimated GFR (MDRD) 19 *L, Glucose 112 H, Calcium 8.3 L, Total Bilirubin 1.4 H, AST 37, ALT 44, Alkaline Phosphatase 63, B-Natriuretic Peptide 2530 H, Total Protein 6.1 L, Albumin 3.1 L, Globulin 3.0, Albumin/Globulin Ratio 1.0 L, WBC 7.1, RBC 2.83 L, Hgb 9.2 L, Hct 28.4 L, MCV 100.2 H, RDW 15.6, Plt Count 127 L, MPV 10.6 H, Gran % 74.2, Gran # 5.3, Lymphocytes % 19.9, Monocytes % 5.7, Eosinophils % 0.1, Basophils % 0.2, Lymphocytes # 1.4, Monocytes # 0.4, Eosinophils # 0.0, Basophils # 0.0, PUBS MCHC 32.1, MCH 32.1 H 09/03/17 2016: POC Glucose 149 H 09/03/17 1055: Lactic Acid 1.5 09/03/17 1055: B-Natriuretic Peptide 2390 H 09/03/17 1055: Sodium 138, Potassium 4.4, Chloride 105, Carbon Dioxide 22, BUN 43 H, Creatinine 2.3 H, Estimated Creat Clear 16 L, Estimated GFR (MDRD) 20 L, Glucose 140 H, Calcium 9.1, Total Bilirubin 1.7 H, AST 25, ALT 39, Alkaline Phosphatase 75, Total Protein 7.3, Albumin 4.0, Globulin 3.3 H, Albumin/ Globulin Ratio 1.2, WBC 12.7 H, RBC 3.29 L, Hgb 10.5 L, Hct 32.8 L, MCV 99.6 H, RDW 15.4, Plt Count 163, MPV 9.6, Gran % 88.2 H, Gran # 11.2 H, Total Counted 100, Lymphocytes % 6.6 L, Monocytes % 4.4, Eosinophils % 0.5, Basophils % 0.3, Neutrophils 92 H, Lymphocytes (Manual) 4 L, Lymphocytes # 0.8, Monocytes (Manual) 4, Monocytes # 0.6, Eosinophils # 0.1, Basophils # 0.0, Platelet Estimate NORMAL, Hypochromasia 1+, Anisocytosis 1+, Macrocytosis 1+, PUBS MCHC 32.0, MCH 31.9 H 09/03/17 1045: Influenza Type A Ag NOT DETECTED, Influenza Type B Ag NOT DETECTED Microbiology 09/04 003 SPUTUM: Sputum Culture - RES 09/04 35 SPUTUM: Gram Stain - RES 09/03 105 THROAT: Throat Culture - COMP 09/03 1055 BLOOD: Anaerobic Blood Culture - RECD 09/03 1055 BLOOD: Aerobic Blood Culture - RECD 09/03 1055 BLOOD: Anaerobic Blood Culture - RECD 09/03 1055 BLOOD: Aerobic Blood Culture - RECD Radiology results: Results: 09/03/17 CXR: IMPRESSION: CHF and small bilateral effusions. Diagnosis(es): 1. Congestive heart failure 2. Pneumonia 3. Sinus bradycardia 4. Acute on chronic renal insufficiency 5. Type 2 diabetes mellitus 6. Hypertension 7. Hyperlipidemia 8. Renal insufficiency 9. Diabetes Plan: Continue current care, await cardiology input. (BETSEY FERRELL APRN) Diagnosis(es): 1. Congestive heart failure 2. Pneumonia 3. Sinus bradycardia 4. Acute on chronic renal insufficiency 5. Type 2 diabetes mellitus 6. Hypertension 7. Hyperlipidemia 8. Renal insufficiency 9. Diabetes Plan: Reviewed by Dr. Rosado 09/04/2017, 1013 (Angelica Rosado MD) at 0913 at 1012
--- NOTE | 2017-09-04 14:34 | RADIOLOGY REPORT PS360 ---
CHEST(2 VIEWS-NOT PORTABLE) HISTORY: CHF, pneumonia ORDERING PHYSICIAN: Angelica Rosado MD PATIENT AGE: 82 years COMPARISON: 09/03/2017 FINDINGS: Prior CABG. Mild cardiomegaly with interval improvement in the congestive heart failure. Opacity in the right CP angle has improved. There are some chronic changes in the left lung base laterally. No lobar consolidation or collapse. IMPRESSION: Improvement in congestive heart failure.
[2017-09-05] VITALS (8 sets, daily range): BP systolic 124–145; BP diastolic 52–61
--- NOTE | 2017-09-05 08:40 | ACUTE CARE PROGRESS NOTE (QUA) ---
See Addendum Progress Notes Subjective Date 09/05/17 Time 0838 Note Patient states she feels a little bit better this morning. She is coughing and wheezing. She did have a neb treatment this morning. She denies any pain and states she slept well and ate well this morning. Objective Findings Last VS-Temp:98.1 B/P:127/52 Pulse:66 Resp:14 SaO2:96 ROOM AIR Last weight lbs:116 oz:8 K.844 Method:Bed Scales Laboratory Tests 09/04/17 1626: POC Glucose 215 H 09/04/17 1124: POC Glucose 108 Exam General appearance: alert, awake Cardiovascular: regular rhythm, bradycardia Respiratory: wheezing ABD: non-distended, normal bowel sounds, no rebound, soft, no tenderness, no guarding Extremities: no peripheral edema Reviewed: CXR - improved CHF Assessment/Plan Problem List 1. Congestive heart failure 2. Pneumonia 3. Sinus bradycardia 4. Acute on chronic renal insufficiency 5. Type 2 diabetes mellitus 6. Hypertension 7. Hyperlipidemia 8. Renal insufficiency 9. Diabetes Plan: Will continue current treatment and get labs tomorrow. This inpt stay is expected to cross 2 MNs from start of care Yes at 0840 at 0851
--- NOTE | 2017-09-05 08:56 | CONSULT NOTE ---
Standard Demographics Patient Demo Date of Consultation: 09/05/17 Referring Provider: Maria Dolores Rosado MD Reason for Consultation: Bradycardia, CHF PRIMARY DIAGNOSIS: chf, sinus ever, pneumonia Problem list Problem list: 1. CAD A. History of CABG, about 1996 2. DM, treated for at least 10 yrs 3. HTN 4. Hyperlipidemia History of present illness: History of present illness: 82-year-old white female with history of coronary bypass grafting, diabetes, hypertension and hyperlipidemia was admitted for increasing shortness of breath and cough. Patient found to have congestive heart failure on chest x-ray and with elevated BNP. Also noted to be bradycardic. Recently seen in our office for a complaint of chest pain at which time she was started on beta michael therapy after patient refused to consider LEFT heart catheterization. She does have chronic kidney disease stage IV which played into consideration of LEFT heart catheterization. Patient is unsure if the beta michael brought about any change in her chest pain symptoms. She did note that her heart rate remained slow in the 40s on it. She states that her heart rate is in the 50-60 bpm range since her bypass surgery. Since admission patient has been started on Lasix therapy with good diuresis and improvement in her shortness of breath and cough. She does note musculoskeletal type chest pain in the abdominal pain with coughing. Cardiology consulted for evaluation and recommendations. Past Medical History: General: Hypertension Yes CVA No Seizures No TB No COPD No Asthma No Diabetes Yes Insulin Dependent Yes Insulin Pump No Angina No NH Yes Hyperlipidemia Yes Urinary Yes Cancer No Rheumatic H.D. Yes Ulcers No MRSA Yes GB Disease Yes Other HEART MURMUR Past Surgical HX: Previous Surgery?Y CABGX3 GALLBLADDER CATARACT REMOVAL-R EYE TONSILECTOMY Allergies Coded Allergies: No Known Allergies (09/03/17) Home medications: Reported Medications Chlorthalidone 25 MG PO BID #90 TAB 90 Days BISOPROLOL FUMARATE (Bisoprolol 5MG) 5 MG PO DAILY Amlodipine Besylate (Amlodipine Besylate) 10 MG PO DAILY INSULIN NPL/INSULIN LISPRO (Humalog Mix 75-25 Kwikpen) 0 UNITS SC BID Allopurinol 100 MG PO DAILY Clopidogrel Bisulfate (Plavix) 75 MG PO DAILY Ramipril (Ramipril 10MG) 10 MG PO DAILY Atorvastatin Calcium 80 MG PO QHS #90 90 Days Discontinued Reported Medications Amlodipine Besylate 10 MG PO BID #180 90 Days DC: 09/04/17 0905 Current Medications: Current Medications Acetaminophen 0 .STK-MED ONE PO (DCr) Acetaminophen 0 .STK-MED ONE PO (DCr) Albuterol/Ipratropium 0 .STK-MED ONE INH (DC) Clopidogrel Bisulfate 75 MG DAILY PO Furosemide 20 MG DAILY IV Ramipril 10 MG DAILY PO Acetaminophen 1,000 MG Q6HP PRN PO (CKD) Sodium Chloride 10 ML PRN PRN IV Albuterol/Ipratropium 3 ML Q6H6 INH Atorvastatin Calcium 80 MG QHS PO Diagnostic Test (Pha) 1 EACH W/MEALS&HS FS Insulin Human [rDNA origin] SEE ADMIN CRITERIA FOR LOW INTENSITY SS W/MEALS&HS SC Furosemide 20 MG BIDL IV (DC) Azithromycin 250 MG DAILY PO Ceftriaxone Sodium 1 GM DAILY IV Sodium Chloride 50 ML Influenza Virus Vaccine Quadrival 0.5 ML PRN PRN IM Nicotine 21 MG DAILYP PRN TD Sodium Chloride 10 ML PRN PRN IV (DC) Sodium Chloride 10 ML PRN PRN IV (DC) Immunization HX DT/Tetanus > 10 YRS Flu Refused Pneumonia Never Had TB Test in last year No Family history Family HX Family Hx Insignificant No Diabetes Yes CAD Yes Hypertension Yes Hyperlipidemia Yes Cancer Yes TB Yes Social Hx: Smoking HX Tobacco No Type Cigarettes Packs/day N/A Are you/the child exposed to second-hand smoke: No Alcohol Alcohol: No Hx of Drug Use Drug Use? No Review of systems: Constitutional weakness. Respiratory see HPI, cough, shortness of breath, SOB with excertion. Cardiovascular chest pain Gastrointestinal/Abdominal No no symptoms reported Genitourinary No: no symptoms reported. Musculoskeletal muscle pain. Neurological No: no symptoms reported. Exam: Admission Vital Signs: 1ST Vital Signs Result Date Time Pulse Ox 92 09/03 1042 B/P 138/56 09/03 1042 Temp 101.1 09/03 1042 Pulse 110 09/03 1042 Resp 24 09/03 1042 O2 Flow Rate 3 09/03 1159 O2 Delivery OXYGEN 09/03 1429 Last Vital Signs: Vital Signs Result Date Time Pulse Ox 96 09/05 0821 B/P 127/52 09/05 0821 O2 Delivery ROOM AIR 09/05 821 Temp 98.1 09/05 0821 Pulse 66 09/05 0821 Resp 14 09/05 0821 O2 Flow Rate 1 09/05 0612 Exam General appearance: alert, awake, no acute distress Neck: no carotid bruit, no JVD Cardiovascular: regular rate & rhythm, murmur Respiratory: diminished breath sounds, wheezing ABD: soft, no guarding Extremities: moves all, no peripheral edema Neuro: alert, intact, oriented Laboratory data: Laboratory Tests 09/04/17 1626: POC Glucose 215 H 09/04/17 1124: POC Glucose 108 09/04/17 0655: POC Glucose 109 09/04/17 0638: Sodium 140, Potassium 3.8, Chloride 107, Carbon Dioxide 19 L, BUN 47 H, Creatinine 2.4 H, Estimated Creat Clear 17 L, Estimated GFR (MDRD) 19 *L, Glucose 112 H, Calcium 8.3 L, Total Bilirubin 1.4 H, AST 37, ALT 44, Alkaline Phosphatase 63, B-Natriuretic Peptide 2530 H, Total Protein 6.1 L, Albumin 3.1 L, Globulin 3.0, Albumin/Globulin Ratio 1.0 L, WBC 7.1, RBC 2.83 L, Hgb 9.2 L, Hct 28.4 L, MCV 100.2 H, RDW 15.6, Plt Count 127 L, MPV 10.6 H, Gran % 74.2, Gran # 5.3, Lymphocytes % 19.9, Monocytes % 5.7, Eosinophils % 0.1, Basophils % 0.2, Lymphocytes # 1.4, Monocytes # 0.4, Eosinophils # 0.0, Basophils # 0.0, PUBS MCHC 32.1, MCH 32.1 H 09/03/17 2016: POC Glucose 149 H 09/03/17 1055: Lactic Acid 1.5 09/03/17 1055: B-Natriuretic Peptide 2390 H 09/03/17 1055: Sodium 138, Potassium 4.4, Chloride 105, Carbon Dioxide 22, BUN 43 H, Creatinine 2.3 H, Estimated Creat Clear 16 L, Estimated GFR (MDRD) 20 L, Glucose 140 H, Calcium 9.1, Total Bilirubin 1.7 H, AST 25, ALT 39, Alkaline Phosphatase 75, Total Protein 7.3, Albumin 4.0, Globulin 3.3 H, Albumin/ Globulin Ratio 1.2, WBC 12.7 H, RBC 3.29 L, Hgb 10.5 L, Hct 32.8 L, MCV 99.6 H, RDW 15.4, Plt Count 163, MPV 9.6, Gran % 88.2 H, Gran # 11.2 H, Total Counted 100, Lymphocytes % 6.6 L, Monocytes % 4.4, Eosinophils % 0.5, Basophils % 0.3, Neutrophils 92 H, Lymphocytes (Manual) 4 L, Lymphocytes # 0.8, Monocytes (Manual) 4, Monocytes # 0.6, Eosinophils # 0.1, Basophils # 0.0, Platelet Estimate NORMAL, Hypochromasia 1+, Anisocytosis 1+, Macrocytosis 1+, PUBS MCHC 32.0, MCH 31.9 H 09/03/17 1045: Influenza Type A Ag NOT DETECTED, Influenza Type B Ag NOT DETECTED Microbiology Date/Time Procedure - Status Source Growth 09/04 0035 Sputum Culture - RES SPUTUM 09/04 0035 Gram Stain - RES SPUTUM 09/03 1055 Throat Culture - COMP THROAT 09/03 1055 Anaerobic Blood Culture - RECD BLOOD 09/03 1055 Aerobic Blood Culture - RECD BLOOD 09/03 1055 Anaerobic Blood Culture - RECD BLOOD 09/03 1055 Aerobic Blood Culture - RECD BLOOD Plan Assessment: 1. Sinus bradycardia, improved off beta michael therapy. Will hold off on pacemaker at this time. 2. CHF, improved with diuretic therapy. Echocardiogram pending. 3. CKD, stage 4 4. CAD, remote CABG. No improvement in SOA symptoms with beta michael therapy so will discontinue and consider amlodipine if needed. 5. HTN, stable 6. Hyperlipidemia, on statin therapy Plan: Discussed with Dr. Ferguson. See above. Medical therapy for now unless recurrent angina then consider cardiac cath with knowledge that renal dialysis would likely be needed. at [phone]
[2017-09-06] VITALS (8 sets, daily range): BP systolic 106–142; BP diastolic 43–92
[2017-09-06 07:09] LABS: LYMPH # 0.9 K/mm3 (0.7-4.5); LYMPH % 20.5 % (10-50.0)
--- NOTE | 2017-09-06 08:56 | ACUTE CARE PROGRESS NOTE (QUA) ---
Progress Notes Subjective Date 09/06/17 Time 0735 Note Pt resting quietly, arouses easily to voice. She reports her cough has become more productive and she feels this has helped her breathing. She denies any pain. She continues to have little appetite and finds it hard to rest well in the hospital. Objective Findings Laboratory Tests 09/06/17 0624: POC Glucose 111 H 09/06/17 0600: Sodium 139, Potassium 4.6, Chloride 103, Carbon Dioxide 25, BUN 49 H, Creatinine 2.2 H, Estimated Creat Clear 17 L, Estimated GFR (MDRD) 21 L, Glucose 128 H, Calcium 9.2, WBC 4.2 L, RBC 3.70 L, Hgb 12.0 L, Hct 37.2, MCV 100.6 H, RDW 15.2, Plt Count 169, MPV 9.6, Gran % 68.7, Gran # 2.9, Lymphocytes % 20.5, Monocytes % 8.5, Eosinophils % 1.7, Basophils % 0.5, Lymphocytes # 0.9, Monocytes # 0.4, Eosinophils # 0.1, Basophils # 0.0, PUBS MCHC 32.1, MCH 32.3 H 09/05/17 2100: POC Glucose 173 H 09/05/17 1644: POC Glucose 184 H 09/05/17 1126: POC Glucose 156 H 09/05/17 0925: Sodium 140, Potassium 3.9, Chloride 104, Carbon Dioxide 21 L, BUN 51 H, Creatinine 2.1 H, Estimated Creat Clear 17 L, Estimated GFR (MDRD) 22 L, Glucose 149 H, Calcium 8.9 Vital Signs Date Time Temp Pulse Resp B/P Pulse O2 O2 Flow FiO2 Ox Delivery Rate 09/06 0635 2 09/06 0635 87 ROOM AIR 09/06 0352 99.1 62 20 117/55 95 OXYGEN 2 09/06 0030 98.3 66 20 120/50 95 OXYGEN 2 09/05 2155 87 ROOM AIR 09/05 2105 98.0 64 18 145/61 97 2 09/05 2030 98.0 64 18 145/61 97 OXYGEN 1 09/05 1600 98.1 60 18 130/59 96 OXYGEN 09/05 1200 97.9 66 18 124/52 90 ROOM AIR 09/05 1039 91 ROOM AIR 09/05 0942 98.1 66 14 127/52 96 Last VS-Temp:99.1 B/P:117/55 Pulse:62 Resp:20 SaO2:87 OXYGEN Last weight lbs:120 oz:0 K.431 Method:Bed Scales Sputum culture: Pseudomonas - see sensitivities Exam General appearance: alert, awake, no acute distress Cardiovascular: regular rate & rhythm, normal peripheral pulses Respiratory: rhonchi throughout, diminished right base, fine rales left base ABD: non-distended, no rebound, soft, no tenderness, no guarding, no organomegaly, no palpable mass, bowel sounds present Extremities: moves all, no peripheral edema, warm, no calf tenderness Neuro: alert, oriented, speech clear, no focal deficit Reviewed: vital signs, lab results, radiology report, consult note, nursing notes Assessment/Plan Problem List 1. Congestive heart failure 2. Pneumonia 3. Sinus bradycardia 4. Acute on chronic renal insufficiency 5. Type 2 diabetes mellitus 6. Hypertension 7. Hyperlipidemia 8. Renal insufficiency 9. Diabetes Plan: Sputum culture showed Pseudomonas, will discuss with Dr. Rosado This inpt stay is expected to cross 2 MNs from start of care Yes at 0856
--- NOTE | 2017-09-06 09:06 | ACUTE CARE PROGRESS NOTE (QUA) ---
Progress Notes Subjective Date 09/06/17 Time 1243 Note Pt in bed in NAD. Feeling better and breathing easier. Objective Findings Last VS-Temp:97.6 B/P:120/68 Pulse:65 Resp:22 SaO2:98 OXYGEN Last weight lbs:120 oz:0 K.431 Method:Bed Scales Exam General appearance: alert, awake, no acute distress Cardiovascular: regular rate & rhythm Respiratory: Improved breath sounds Extremities: moves all, no peripheral edema Neuro: alert, intact, oriented Reviewed: medications, vital signs, lab results Assessment/Plan Problem List 1. Congestive heart failure 2. Pneumonia 3. Sinus bradycardia Assessment/Plan: Heart rate has improved off beta blockers. Will not proceed with pacemaker at this time. 4. Acute on chronic renal insufficiency 5. Type 2 diabetes mellitus 6. Hypertension 7. Hyperlipidemia 8. Renal insufficiency 9. Diabetes Patient condition Stable Plan: Cardiac status stable. Nothing further to add at this time. This inpt stay is expected to cross 2 MNs from start of care Yes at 1301
--- NOTE | 2017-09-06 10:00 | ACUTE CARE PROGRESS NOTE (QUA) ---
See Addendum Progress Notes Subjective Date 09/06/17 Time 0959 Assessment/Plan Problem List 1. Congestive heart failure 2. Pneumonia 3. Sinus bradycardia 4. Acute on chronic renal insufficiency 5. Type 2 diabetes mellitus 6. Hypertension 7. Hyperlipidemia 8. Renal insufficiency 9. Diabetes 10. Bradycardia 11. Pseudomonas aeruginosa infection This inpt stay is expected to cross 2 MNs from start of care Yes at 0959
--- NOTE | 2017-09-06 10:39 | RADIOLOGY REPORT PS360 ---
PROCEDURE: 2-D M-mode and color Doppler study INDICATIONS FOR THE TEST: Chest pain COPD Heart Murmur Tobacco Smoking Palpitations Fatigue Syncope Edema Hypertension+Diabetes Mellitus+ Rheumatic Fever SOB CARDONA Obesity Hyperlipidemia+ Family History HD Additional History CABG, STENT, PVD PATIENT INFORMATION HEIGHT: 58 WEIGHT:122 GENDER: Female B/P: 2-D/M-MODE INTERPRETATION: 2-D MEASUREMENTS OBSERVED VALUES IN CMS Right Ventricular Dimension (RVDd) 2.9 Interventricular Septum (Thickness)(IVsd) 1.2 Left Ventricular Internal Dimensions(LVIDd) 4.8 Left Ventricular Posterior Wall (Thickness)(LVPWd 1.0 Aortic Root 2.6 Aortic Cusp Separation 1.6 Left Atrial Dimensions (LAD) 4.6 2D 1. Technically difficult study because of the patient's factor and poor acoustic windows 2. The left atrium is moderately enlarged, left ventricle is normal size, there is mild concentric left ventricular hypertrophy, visually estimated ejection fraction 45%, there is discrete wall motion abnormality involving the distal septum and apical wall which are markedly hypokinetic. 3. The right atrium is moderately enlarged, right ventricle is mildly dilated with normal contractility. 4. The mitral valve leaflets are minimally thickened. 5. The tricuspid valve leaflets are minimally thickened. 6. Pulmonic valve is minimally thickened and fibrosed. 7. No significant pericardial effusion noted. DOPPLER INTERROGATION: Doppler interrogation of the aortic, mitral, tricuspid and pulmonic valve reveals presence of moderate mitral and tricuspid regurgitation, tricuspid regurgitant jet velocity is insufficient for calculation of the right ventricular systolic pressure, moderate pulmonic insufficiency also seen. Possibility of significantly raised right ventricular systolic pressure cannot be excluded CONCLUSION: 1. Moderate biatrial enlargement, normal left ventricular size, mild concentric left ventricular hypertrophy, visually estimated ejection fraction 45% with segmental wall motion abnormality described above. 2. Moderate mitral and moderate tricuspid regurgitation, tricuspid regurgitant jet velocity is insufficient for accurate assessment of the right ventricular systolic pressure, presence of significant pulmonary hypertension cannot be excluded based on this study. 3. Moderate pulmonic insufficiency. 4. No significant pericardial effusion noted.
--- NOTE | 2017-09-06 13:47 | ACUTE CARE PROGRESS NOTE (QUA) ---
Progress Notes Subjective Date 09/06/17 Time 1346 Assessment/Plan Problem List 1. Congestive heart failure 2. Pneumonia 3. Sinus bradycardia 4. Acute on chronic renal insufficiency 5. Type 2 diabetes mellitus 6. Hypertension 7. Hyperlipidemia 8. Renal insufficiency 9. Diabetes This inpt stay is expected to cross 2 MNs from start of care Yes Antibiotic Stewardship (2) Current Culture Results Microbiology 09/04 35 SPUTUM: Sputum Culture - COMP PSEUDOMONAS AERUGINOSA 09/04 003 SPUTUM: Gram Stain - COMP 09/03 1055 THROAT: Throat Culture - COMP 09/03 105 BLOOD: Anaerobic Blood Culture - RECD 09/03 1055 BLOOD: Aerobic Blood Culture - RECD Infxn that will respond? Yes (PSEUDOMONAS) Right drug,dose,and route? Yes (ROCEPHIN AND LEVAQUIN) More targeted antbx? No at 1341
[2017-09-07 00:29] VITALS: BP 148/73
[2017-09-07 03:45] VITALS: BP 137/83
[2017-09-07 08:00] VITALS: BP 139/58
--- NOTE | 2017-09-07 08:53 | ACUTE CARE PROGRESS NOTE (QUA) ---
See Addendum Progress Notes Subjective Date 09/07/17 Time 0735 Note Pt sitting up in bed eating breakfast and watching tv. She denies any pain or SOB, notes that she has done well on room air although it is "easier to breathe with the oxygen on". She notes that she has had increasingly productive cough and gotten choked while trying to bring up sputum. Objective Findings Laboratory Tests 09/07/17 0634: POC Glucose 144 H 09/06/17 2146: POC Glucose 185 H 09/06/17 1646: POC Glucose 171 H 09/06/17 1118: POC Glucose 236 H Vital Signs Date Time Temp Pulse Resp B/P Pulse O2 O2 Flow FiO2 Ox Delivery Rate 09/07 0630 1 09/07 0630 93 ROOM AIR 09/07 0345 98.7 68 17 137/83 95 OXYGEN 09/07 0029 98.1 68 18 148/73 100 OXYGEN 1 09/06 2145 98.2 65 18 142/92 94 09/06 2132 1 09/06 2132 94 ROOM AIR 09/06 2030 98.2 65 18 142/92 93 OXYGEN 1 09/06 1659 1 09/06 1659 91 ROOM AIR 09/06 1600 98.4 66 18 106/43 97 OXYGEN 1 09/06 1400 2 09/06 1300 2 09/06 1200 2 09/06 1200 97.2 71 18 141/65 94 OXYGEN 2 09/06 1141 94 OXYGEN 2 09/06 1048 2 09/06 1000 2 09/06 0942 97.6 65 22 120/68 98 2 Last VS-Temp:98.7 B/P:137/83 Pulse:68 Resp:17 SaO2:93 OXYGEN Last weight lbs:116 oz:2 K.673 Method:Bed Scales Exam General appearance: alert, awake, no acute distress Cardiovascular: regular rate & rhythm, normal peripheral pulses Respiratory: rhonchi and wheezes throughout, increased from yesterday, with bibasilar fine rales ABD: non-distended, no rebound, soft, no tenderness, no guarding, no organomegaly, no palpable mass, bowel sounds present Extremities: moves all, no peripheral edema, warm, no calf tenderness, bilateral ROWDY hose in place Neuro: alert, oriented, speech clear, no focal deficit Reviewed: medications, vital signs, lab results, radiology report, consult note, nursing notes Assessment/Plan Problem List 1. Congestive heart failure 2. Pneumonia 3. Sinus bradycardia 4. Acute on chronic renal insufficiency 5. Type 2 diabetes mellitus 6. Hypertension 7. Hyperlipidemia 8. Renal insufficiency 9. Diabetes Plan: continue current care, further per Dr. Rosado This inpt stay is expected to cross 2 MNs from start of care Yes at 0853 at 0952
--- NOTE | 2017-09-07 08:57 | ACUTE CARE PROGRESS NOTE (QUA) ---
Progress Notes Subjective Date 09/07/17 Time 0849 Note 82 yo WF in bed in NAD. No chest pains but restless night due to cough. Telemetry shows heart rate continues to be in the 60-70's bpm. Objective Findings Last VS-Temp:98.7 B/P:137/83 Pulse:68 Resp:17 SaO2:93 OXYGEN Last weight lbs:116 oz:2 K.673 Method:Bed Scales Exam General appearance: alert, awake, no acute distress Cardiovascular: regular rate & rhythm Respiratory: rhonchi Reviewed: medications, vital signs, lab results Assessment/Plan Problem List 1. Congestive heart failure 2. Pneumonia 3. Sinus bradycardia 4. Acute on chronic renal insufficiency 5. Type 2 diabetes mellitus 6. Hypertension 7. Hyperlipidemia 8. Renal insufficiency 9. Diabetes Patient condition Guarded Plan: No pacemaker needed at this time. Due to cough and recent CHF, will repeat CXR. This inpt stay is expected to cross 2 MNs from start of care Yes at 0880
[2017-09-07 09:39] VITALS: BP 139/58
[2017-09-07 10:37] VITALS: BP 139/58
--- NOTE | 2017-09-07 10:51 | RADIOLOGY REPORT PS360 ---
CHEST(2 VIEWS-NOT PORTABLE) COMPARISON: PA and lateral chest 09/04/2017 HISTORY: Cough, follow-up known congestive heart failure TECHNIQUE: PA and lateral chest FINDINGS: This is a good inspiration and the lung yen are free of active infiltrate. There has been definite interval improvement in the cardiovascular status when compared to the recent chest films of and 04 September. The pulmonary vascularity is essentially normal to this time. Minimal left basilar atelectasis remains at the costophrenic angle there is generalized osteopenia the thoracic spine but there is no compression fracture seen. IMPRESSION: Essentially resolved congestive failure, no definite pneumonic infiltrate seen
== END 2017-09-07 10:55 | disposition swing bed (61) | DRG 291 ==
LOC: ER 10:38 → 2ND 12:23
PROVIDERS: Emergency Medicine; Family Medicine
DX: I13.0 Hypertensive heart and chronic kidney disease with heart failure and stage 1 through stage 4 chronic kidney disease, or unspecified chronic kidney disease (principal); J18.9 Pneumonia, unspecified organism; N17.9 Acute kidney failure, unspecified; Z95.1 Presence of aortocoronary bypass graft; E11.22 Type 2 diabetes mellitus with diabetic chronic kidney disease; Z79.4 Long term (current) use of insulin; N18.9 Chronic kidney disease, unspecified
CPT/HCPCS: J1956